=== PATIENT | male | born 1980 | race Caucasian/White ===

== ENCOUNTER 2020-03-19 23:49 | Emergency (ER) | payer SELFPAY ==
[2020-03-20] MEDS ORDERED: RINGERS SOLUTION,LACTATED 1,000 ML IV ONE (00:29)
--- NOTE | 2020-03-20 00:31 | ER Document Report ---
ED Medical Screen (RME) - General Stated Complaint: ETOH Time Seen by Provider: 03/20/20 00:28 Mode of Arrival: Wheelchair Information source: Patient Notes: HPI; 39-year-old male past medical history significant for chronic alcohol use and anxiety presents to the emergency room for medical clearance from [place]. Patient states he was just discharged 2 days ago from [facility] for anxiety and immediately started drinking again. Patient states he does not want to drink anymore he wants help with his drinking. Denies any suicidal homicidal ideation. Unknown amount of alcohol today. PE: Alert and oriented x3. Lungs: Clear to auscultation without rales, rhonchi, wheezes. Heart is tachycardic without murmurs, rubs, gallops. Patient is a poor historian. I have greeted and performed a rapid initial assessment of this patient. A comprehensive ED assessment and evaluation of the patient, analysis of test results and completion of the medical decision making process will be conducted by additional ED providers. I have specifically instructed the patient or family members with the patient to immediately return to any nursing staff should anything change in the patient's condition or with their chief complaint. TRAVEL OUTSIDE OF THE [place] IN LAST 30 DAYS: No Physical Exam - Vital signs Vitals: Temp Pulse BP Pulse Ox 98.1 F 140 H 118/68 99 03/20/20 00:04 03/20/20 00:04 03/20/20 00:04 03/20/20 00:04 Course - Vital Signs Vital signs: Temp Pulse Resp BP Pulse Ox 98.1 F 140 H 118/68 99 03/20/20 00:04 03/20/20 00:04 03/20/20 00:04 03/20/20 00:04
[2020-03-20 01:16] LABS: ABSOLUTE BASOPHILS # (AUTO) 0.1 10^3/uL (0.0-0.2); ABSOLUTE EOSINOPHILS # (AUTO) 0.1 10^3/uL (0.0-0.6); ABSOLUTE LYMPHOCYTES (AUTO) 2.8 10^3/uL (0.5-4.7); ABSOLUTE MONOCYTES (AUTO) 0.4 10^3/uL (0.1-1.4); ABSOLUTE NEUT (AUTO) 2.8 10^3/uL (1.7-8.2); BASOPHILS % (AUTO) 0.8 % (0-2); EOSINOPHILS % (AUTO) 1.1 % (0-6); HEMATOCRIT 45.8 % (37.9-51.0); HEMOGLOBIN 16.2 g/dL (13.5-17.0); LYMPHOCYTES % (AUTO) 45.5 % (13-45); MEAN CORPUSCULAR HEMOGLOBIN 33.1 pg (27.0-33.4); MEAN CORPUSCULAR HGB CONC 35.4 g/dL (32.0-36.0); MEAN CORPUSCULAR VOLUME 93 fl (80-97); MONOCYTES % (AUTO) 6.9 % (3-13); PLATELET COUNT 296 10^3/uL (150-450); RED CELL DISTRIBUTION WIDTH 15.2 % (11.5-14.0); SEGMENTED NEUTROPHILS % (AUTO) 45.7 % (42-78); TOTAL CELLS COUNTED % (AUTO) 100 %; WHITE BLOOD COUNT 6.2 10^3/uL (4.0-10.5)
[2020-03-20 01:37] LABS: ALBUMIN 4.9 g/dL (3.5-5.0); ALKALINE PHOSPHATASE 86 U/L (38-126); ANION GAP 14 (5-19); ASPARTATE AMINO TRANSFERASE 30 U/L (17-59); BILIRUBIN,DIRECT 0.2 mg/dL (0.0-0.4); BILIRUBIN,TOTAL 0.4 mg/dL (0.2-1.3); BLOOD UREA NITROGEN 8 mg/dL (7-20); CALCIUM 9.3 mg/dL (8.4-10.2); CARBON DIOXIDE 28 mmol/L (22-30); CHLORIDE 106 mmol/L (98-107); GLUCOSE 112 mg/dL (75-110); POTASSIUM 4.4 mmol/L (3.6-5.0); TOTAL PROTEIN 8.2 g/dL (6.3-8.2)
[2020-03-20 01:39] LABS: ACETAMINOPHEN < 10 ug/mL (10-30); SALICYLATE < 1.0 mg/dL (2.0-20.0)
[2020-03-20 01:52] LABS: ALCOHOL 389 mg/dL (NONE DETECTED)
[2020-03-20 03:17] LABS: APPEARANCE,URINE SLIGHTLY-CLOUDY; BILIRUBIN,URINE NEGATIVE (NEGATIVE); COLOR,URINE YELLOW; GLUCOSE, URINE NEGATIVE (NEGATIVE); KETONES,URINE NEGATIVE (NEGATIVE); LEUKOCYTE ESTERASE,URINE NEGATIVE (NEGATIVE); NITRITE,URINE NEGATIVE (NEGATIVE); PROTEIN,URINE NEGATIVE (NEGATIVE); URINE SPECIFIC GRAVITY 1.009; UROBILINOGEN,URINE NEGATIVE mg/dL (<2.0)
[2020-03-20 03:34] LABS: URINE AMPHETAMINES SCREEN NEGATIVE; URINE BARBITURATES SCREEN NEGATIVE; URINE COCAINE SCREEN NEGATIVE; URINE MARIJUANA (THC) SCREEN NEGATIVE; URINE METHADONE SCREEN NEGATIVE; URINE PHENCYCLIDINE SCREEN NEGATIVE
[2020-03-20 03:35] LABS: URINE BENZODIAZEPINES SCREEN UNCONFIRMED POSITIVE
--- NOTE | 2020-03-20 05:30 | ER Document Report ---
ED General - General Chief Complaint: ETOH Abuse Stated Complaint: ETOH Time Seen by Provider: 03/20/20 00:28 Mode of Arrival: Wheelchair TRAVEL OUTSIDE OF THE [place] IN LAST 30 DAYS: No - HPI Context: This is a 39-year-old male with a past medical history of chronic alcoholism and anxiety presenting to the emergency room requesting medical clearance so he can go over to [facility] for alcohol detox. Patient states that he went over to [place] earlier this evening and apparently his alcohol level was too high for them to take him in and they directed him to the ED for medical clearance. Patient states he was just discharged from [facility] a couple of days ago for anxiety and immediately started drinking again to control his anxiety. Patient states he definitely does want to stop drinking and he denies any type of suicidal or homicidal ideation. Patient states he has been drinking but does not recall how much he has had to drink. Patient denies fever, chills, chest pain, shortness of breath, loss of sense of taste, loss of sense of smell, prior Covid 19 infection, known exposure to persons positive for COVID-19 or persons under investigation for COVID-19. Patient denies pain but states that his alcohol abuse is severe and nothing seems to help with this problem and he noticed that the more he drinks the worsening makes the problem for himself. Patient denies nausea, vomiting. Associated symptoms: Other - See HPI Exacerbated by: Other - See HPI Relieved by: Other - See HPI Similar symptoms previously: Yes - Related Data Allergies/Adverse Reactions: No Known Allergies Allergy (Verified 03/20/20 00:33) Past Medical History - General Information source: Patient - Social History Smoking Status: Current Every Day Smoker Frequency of alcohol use: Heavy Drug Abuse: None Family History: Reviewed & Not Pertinent Psychiatric Medical History: Reports: Hx Anxiety, Other - Alcoholism Review of Systems - Review of Systems Constitutional: No symptoms reported EENT: No symptoms reported Cardiovascular: No symptoms reported Respiratory: No symptoms reported Gastrointestinal: No symptoms reported Genitourinary: No symptoms reported Male Genitourinary: No symptoms reported Musculoskeletal: No symptoms reported Skin: No symptoms reported Hematologic/Lymphatic: No symptoms reported Neurological/Psychological: Anxiety, Other - Alcohol abuse -: Yes All other systems reviewed and negative Physical Exam - Vital signs Vitals: Temp Pulse BP Pulse Ox 98.1 F 140 H 118/68 99 03/20/20 00:04 03/20/20 00:04 03/20/20 00:04 03/20/20 00:04 - Notes Notes: CONSTITUTIONAL [Vital signs reviewed, patient is sleeping but is easily awoken in response to voice. Patient is alert and oriented x3 at this time. Patient has a nontoxic appearance. HEAD [Atraumatic, Normocephalic.] EYES [Eyes are normal to inspection, No discharge from eyes, Extraocular muscles intact, Sclera are normal, Conjunctiva are normal.] ENT [External ears normal to inspection, Nose examination normal, Mouth normal to inspection.] NECK [Normal ROM, No jugular venous distention, No meningeal signs, ] RESPIRATORY CHEST [Chest is nontender, Breath sounds normal, No respiratory distress.] CARDIOVASCULAR [RRR, No murmurs, Normal S1 S2, No rub, No gallop.] ABDOMEN [Abdomen is nontender, No pulsatile masses, No other masses, Bowel sounds normal, No distension, No peritoneal signs, No hernias.] BACK [There is no CVA Tenderness, There is no tenderness to palpation, Normal inspection.] UPPER EXTREMITY [Inspection normal, No cyanosis, No clubbing, No edema, LOWER EXTREMITY [Inspection normal, No cyanosis, No clubbing, No edema, No calf tenderness, NEURO [No focal motor deficits, No focal sensory deficits, Speech normal.] SKIN [Skin is warm, Skin is dry, Skin is normal color.] PSYCHIATRIC [Depressed affect. ] Course - Re-evaluation Re-evalutation: 03/20/20 05:30 Results of ED MSE to this point discussed with patient. Patient was informed that his alcohol level would need to be below 200 before dextroverted accept him. - Vital Signs Vital signs: Temp Pulse Resp BP Pulse Ox 98.1 F 140 H 20 111/79 99 03/20/20 00:04 03/20/20 00:04 03/20/20 03:01 03/20/20 03:00 03/20/20 00:04 - Laboratory Result Diagrams: 03/20/20 01:00 03/20/20 01:00 Laboratory results interpreted by me: 03/20/20 03/20/20 01:00 01:00 RDW 15.2 H Lymph % (Auto) 45.5 H Sodium 147.6 H Glucose 112 H Salicylates < 1.0 L Acetaminophen < 10 L Serum Alcohol 389 H* - EKG Interpretation by Me Additional EKG results interpreted by me: 03/20/20 05:30 EKG obtained on 03/20/2020 at 00 18 hours was interpreted by this MD. Findings: Normal sinus rhythm, rate 98, NC interval appears to be within normal limits, P waves preceding QRS complexes, QRS complexes revealed incomplete right bundle branch block and left anterior fascicular block, QTC is 445, there are no obvious patterns of ST segment elevation, depression or reciprocal changes seen to suggest acute myocardial ischemia or infarction. There is no prior EKG available for comparison. Impression: Normal sinus rhythm with incomplete right bundle branch block, left anterior fascicular block and nonspecific ST segments. - Transfer of Care Care transferred to following provider: PROMISE Campbell @ 0600 Discharge - Discharge Clinical Impression: Alcohol use disorder Acute alcohol intoxication Qualifiers: Complication of substance-induced condition: uncomplicated Qualified Code(s): F10.920 - Alcohol use, unspecified with intoxication, uncomplicated Condition: Stable Disposition: OTHER
[2020-03-20] MEDS: NORMAL SALINE 1000 ML 1,000 ML IV PRN ×2 (05:42→07:10)
[2020-03-20] MEDS ORDERED: NORMAL SALINE 1000 ML 1,000 ML IV PRN (11:56)
[2020-03-20] MEDS ORDERED: ONDANSETRON HCL INJ/PF 4 MG/2 ML SDV IV ONE (13:17)
[2020-03-20] MEDS ORDERED: LORAZEPAM INJ 2 MG/1 ML VIAL IV ONE (14:21)
[2020-03-20 14:39] VITALS: BP 104/65
--- NOTE | 2020-03-20 18:59 | EKG REPORT ---
SEVERITY:- ABNORMAL ECG - SINUS RHYTHM PROBABLE LEFT ATRIAL ABNORMALITY INCOMPLETE RBBB AND LAFB : Confirmed by: Nette Ignacio MD 20-Mar-2020 18:58:52
== END 2020-03-20 14:54 ==
LOC: ER 23:49
DX: F10.920 Alcohol use, unspecified with intoxication, uncomplicated (principal); F41.9 Anxiety disorder, unspecified; F17.200 Nicotine dependence, unspecified, uncomplicated
CPT/HCPCS: 93005; 99285; 96361; 96374; 96375; 36415; 80307 ×4; 85025; 80053; 81001; 93010; J2060; J2405; J7030; J7120

== ENCOUNTER 2020-03-28 16:47 | Emergency (ER) | payer SELFPAY ==
--- NOTE | 2020-03-28 17:01 | ER Document Report ---
ED Medical Screen (RME) - General Chief Complaint: Medical Clearance Stated Complaint: MEDICAL CLEARANCE Time Seen by Provider: 03/28/20 16:58 Mode of Arrival: Ambulatory Information source: Patient Notes: Presents requesting medical clearance for detox to the [facility]. Patient is requesting treatment for alcohol abuse. Patient states he has been drinking about 18 beers a day for many years. Patient's last use was about 3 hours ago. Patient states he is only had 4 beers today. Patient denies any chronic medical problems. Patient has not eaten any food in several days and the [facility] facility would like him to have a meal tray while here as well. I have greeted and performed a rapid initial assessment of this patient. A comprehensive ED assessment and evaluation of the patient, analysis of test results and completion of the medical decision making process will be conducted by additional ED providers. TRAVEL OUTSIDE OF THE [place] IN LAST 30 DAYS: No - Related Data Allergies/Adverse Reactions: No Known Allergies Allergy (Verified 03/20/20 00:33) Past Medical History Psychiatric Medical History: Reports: Hx Anxiety Physical Exam - Vital signs Vitals: Temp Pulse Resp BP Pulse Ox 98.7 F 110 H 16 145/72 H 100 03/28/20 16:52 03/28/20 16:52 03/28/20 16:52 03/28/20 16:52 03/28/20 16:52 - Cardiovascular Rhythm: Tachycardia Heart sounds: S1 appreciated, S2 appreciated Course - Vital Signs Vital signs: Temp Pulse Resp BP Pulse Ox 98.7 F 110 H 16 145/72 H 100 03/28/20 16:52 03/28/20 16:52 03/28/20 16:52 03/28/20 16:52 03/28/20 16:52
[2020-03-28 17:51] LABS: APPEARANCE,URINE CLEAR; BILIRUBIN,URINE NEGATIVE (NEGATIVE); COLOR,URINE COLORLESS; GLUCOSE, URINE NEGATIVE (NEGATIVE); KETONES,URINE NEGATIVE (NEGATIVE); LEUKOCYTE ESTERASE,URINE NEGATIVE (NEGATIVE); NITRITE,URINE NEGATIVE (NEGATIVE); PROTEIN,URINE NEGATIVE (NEGATIVE); URINE SPECIFIC GRAVITY 1.002; UROBILINOGEN,URINE NEGATIVE mg/dL (<2.0)
[2020-03-28 17:53] LABS: ABSOLUTE BASOPHILS # (AUTO) 0.1 10^3/uL (0.0-0.2); ABSOLUTE LYMPHOCYTES (AUTO) 1.8 10^3/uL (0.5-4.7); ABSOLUTE MONOCYTES (AUTO) 0.4 10^3/uL (0.1-1.4); ABSOLUTE NEUT (AUTO) 4.5 10^3/uL (1.7-8.2); EOSINOPHILS % (AUTO) 0.3 % (0-6); HEMATOCRIT 45.3 % (37.9-51.0); HEMOGLOBIN 15.7 g/dL (13.5-17.0); LYMPHOCYTES % (AUTO) 26.3 % (13-45); MEAN CORPUSCULAR HEMOGLOBIN 32.2 pg (27.0-33.4); MEAN CORPUSCULAR HGB CONC 34.7 g/dL (32.0-36.0); MEAN CORPUSCULAR VOLUME 93 fl (80-97); MONOCYTES % (AUTO) 5.9 % (3-13); PLATELET COUNT 243 10^3/uL (150-450); RED BLOOD COUNT 4.87 10^6/uL (4.35-5.55); RED CELL DISTRIBUTION WIDTH 14.9 % (11.5-14.0); SEGMENTED NEUTROPHILS % (AUTO) 66.5 % (42-78); TOTAL CELLS COUNTED % (AUTO) 100 %; WHITE BLOOD COUNT 6.8 10^3/uL (4.0-10.5)
[2020-03-28 18:08] LABS: URINE AMPHETAMINES SCREEN NEGATIVE; URINE BARBITURATES SCREEN NEGATIVE; URINE BENZODIAZEPINES SCREEN NEGATIVE; URINE COCAINE SCREEN NEGATIVE; URINE MARIJUANA (THC) SCREEN NEGATIVE; URINE METHADONE SCREEN NEGATIVE; URINE PHENCYCLIDINE SCREEN NEGATIVE
[2020-03-28 18:10] LABS: ALBUMIN 4.8 g/dL (3.5-5.0); ALKALINE PHOSPHATASE 93 U/L (38-126); ANION GAP 12 (5-19); ASPARTATE AMINO TRANSFERASE 28 U/L (17-59); BILIRUBIN,DIRECT 0.1 mg/dL (0.0-0.4); BILIRUBIN,TOTAL 0.5 mg/dL (0.2-1.3); BLOOD UREA NITROGEN 7 mg/dL (7-20); CALCIUM 9.4 mg/dL (8.4-10.2); CARBON DIOXIDE 31 mmol/L (22-30); CHLORIDE 101 mmol/L (98-107); GLUCOSE 92 mg/dL (75-110); POTASSIUM 4.2 mmol/L (3.6-5.0)
[2020-03-28 18:20] LABS: ALCOHOL 363 mg/dL (NONE DETECTED)
--- NOTE | 2020-03-28 19:41 | ER Document Report ---
ED General - General Mode of Arrival: Ambulatory Information source: Patient TRAVEL OUTSIDE OF THE [place] IN LAST 30 DAYS: No <MAURICIO CONNOR - Last Filed: 03/28/20 19:46> <SOLEDAD JOHNSON IV - Last Filed: 03/29/20 04:16> - General Chief Complaint: ETOH Abuse Stated Complaint: MEDICAL CLEARANCE Time Seen by Provider: 03/28/20 16:58 Primary Care Provider: PAMELA TANG MD [HONORARY] - Follow up as needed Notes: 39-year-old man presents to the emergency department for medical clearance for a rehab stay for alcohol abuse. He denies any active medical problems, he is a smoker approximately a pack and 1/2/day. He admits that he has been abusing alcohol and needs help. Patient states that his last drink was this morning, states that he drinks 2, 24 ounce malt liquors. Apparently he has a bed at [place]. (MAURICIO CONNOR) - Related Data Allergies/Adverse Reactions: No Known Allergies Allergy (Verified 03/20/20 00:33) Past Medical History - General Information source: Patient - Social History Smoking Status: Current Every Day Smoker Frequency of alcohol use: Heavy Drug Abuse: None Family History: Reviewed & Not Pertinent Psychiatric Medical History: Reports: Hx Anxiety <MAURICIO CONNOR - Last Filed: 03/28/20 19:46> Review of Systems <MAURICIO CONNOR - Last Filed: 03/28/20 19:46> - Review of Systems Notes: Constitutional: Negative for fever. HENT: Negative for sore throat. Eyes: Negative for visual changes. Cardiovascular: Negative for chest pain. Respiratory: Negative for shortness of breath. Gastrointestinal: Negative for abdominal pain, vomiting or diarrhea. Genitourinary: Negative for dysuria. Musculoskeletal: Negative for back pain. Skin: Negative for rash. Neurological: Negative for headaches, weakness or numbness. 10 point ROS negative except as marked above and in HPI. (MAURICIO CONNOR) Physical Exam <MAURICIO CONNOR - Last Filed: 03/28/20 19:46> - Vital signs Vitals: Temp Pulse Resp BP Pulse Ox 98.7 F 110 H 16 145/72 H 100 03/28/20 16:52 03/28/20 16:52 03/28/20 16:52 03/28/20 16:52 03/28/20 16:52 - Notes Notes: GENERAL: No acute distress, non-toxic appearance. HEAD: Normal with no signs of head trauma. EYES: PERRLA, EOMI, conjunctiva normal, no discharge. EARS: Hearing grossly intact. NOSE: Normal. THROAT: Oropharynx is normal. NECK: Normal range of motion, no tenderness, supple, no lymphadenopathy, No adenopathy, no JVD. CHEST: Clear breath sounds bilaterally. No wheezes, rales, or rhonchi. CARDIAC: Regular rate and rhythm. S1 and S2, without murmurs, gallops, or rubs. VASCULAR: No Edema. Peripheral pulses normal and equal in all extremities. ABDOMEN: Normal and soft with no tenderness, no masses or pulsatile masses. GASTROINTESTINAL: Bowel sounds normal GENITOURINARY: Normal, No tenderness LYMPATHTIC: No lymphadenopathy noted. MUSCULOSKELETAL: Good range of motion of all major joints. Extremities without clubbing, cyanosis or edema. NEUROLOGICAL: Alert and oriented x 3. No focal sensory or strength deficits. Speech normal. Follows commands appropriately. PSYCHIATRIC: Normal Affect, judgement and mood. SKIN: Normal appearance with no rashes or lesions. (MAURICIO CONNOR) Course - Laboratory Result Diagrams: 03/28/20 17:30 03/28/20 17:30 - EKG Interpretation by Nh Rate: Normal - EKG interpreted by Dr. Connor: Normal sinus rhythm, rate 70, NE interval 188 ms, QT interval 408 ms, left axis deviation, ICRBBB, abnormal R wave progres no acute ST or T wave abnormalities, no ischemic findings, compared to EKG dated 03/20/20,no acute interval changes. interpretation: Abnormal EKG <MAURICIO CONNOR - Last Filed: 03/28/20 19:46> - Laboratory Result Diagrams: 03/28/20 17:30 03/28/20 17:30 <SOLEDAD JOHNSON IV - Last Filed: 03/29/20 04:16> - Re-evaluation Re-evalutation: 03/29/20 02:46 Patient's repeat alcohol level is now 178. This MD asked the charge nurse to contact [place] see if they were ready to receive the patient over there for alcohol detox and rehab. 03/29/20 04:15 Patient's bed at [place] is ready (SOLEDAD JOHNSON IV) - Vital Signs Vital signs: Temp Pulse Resp BP Pulse Ox 98.7 F 110 H 16 145/72 H 100 03/28/20 16:52 03/28/20 16:52 03/28/20 16:52 03/28/20 16:52 03/28/20 16:52 - Laboratory Laboratory results interpreted by me: 03/28/20 03/28/20 17:30 17:30 RDW 14.9 H Carbon Dioxide 31 H Serum Alcohol 363 H* Discharge <MAURICIO CONNOR - Last Filed: 03/28/20 19:46> <SOLEDAD JOHNSON IV - Last Filed: 03/29/20 04:16> - Discharge Clinical Impression: Alcohol abuse Alcohol intoxication Qualifiers: Complication of substance-induced condition: with unspecified complication Qualified Code(s): F10.929 - Alcohol use, unspecified with intoxication, unspeci fied Condition: Good Disposition: OTHER Additional Instructions: Return to the Emergency Department without delay if any worse. HOME CARE INSTRUCTIONS & INFORMATION: Thank you for choosing us for your medical needs. We hope you're satisfied with the care you received. After you leave, you must properly care for your problem and, at the same time, observe its progress. Any condition can change. Some illnesses can change rapidly over hours or days. If your condition worsens, return to the Emergency Department or see your physician promptly. ABOUT YOUR X-RAYS AND EKG'S: If you had an EKG or X-rays taken, they have been read by the Emergency Physician. The X-rays and EKG's will also be read by a Radiologist or Marine Fireman within 24 hours. If discrepancies are noted, you will be notified by telephone. Please be certain the ED has a correct telephone number & address where you can be reached. Also, realize that some fractures or abnormalities do not show up on initial X-rays. If your symptoms continue, see your physician. ABOUT YOUR LABORATORY TEST: If you had laboratory tests, the results have been reviewed by the Emergency Physician. Some test results (for example cultures) may not be available for several days. You will be contacted if any test result shows you need additional treatment. Please be certain the ED has a correct telephone number and address where you can be reached. ABOUT YOUR MEDICATIONS: You will receive instructions on how to take your medicine on the prescription label you receive. Additional information may be provided by the Pharmacy. If you have questions afterwards, call the ED for clarification or further instructions. Some prescribed medications may cause drowsiness. Do not perform tasks such as driving a car or operating machinery without consulting your Pharmacist. If you feel you need a refill of pain medication, your condition will need re-evaluation. Please do not call for a refill of any medication. ABOUT YOUR SIGNATURE: Signature of this document acknowledges to followin. Understanding that you received emergency treatment and that you may be released before al medical problems are known or treated. Please be certain the ED has a correct phone number & address where you can be reached. 2. Acknowledgement that you will arrange for follow-up care as recommended. 3. Authorization for the Emergency Physician to provide information to your follow-up Physician in order to maximize your care. AT ANY TIME, IF YOUR SYMPTOMS CHANGE SIGNIFICANTLY OR WORSEN OR YOU DEVELOP NEW SYMPTOMS, RETURN TO THE EMERGENCY DEPARTMENT IMMEDIATELY FOR RE-EVALUATION. OUR GOAL IS TO PROVIDE EXCELLENT MEDICAL CARE! WE HOPE THAT WE HAVE MET YOUR EXPECTATIONS DURING YOUR EMERGENCY DEPARTMENT VISIT AND THAT YOU FEEL YOU HAVE RECEIVED EXCELLENT CARE! Acute Alcohol Intoxication Your evaluation revealed very high levels of alcohol. You can from drinking a large amount of alcohol rapidly! Further, there's the risk of falls, traffic accidents, and fights. A high portion (about 50 percent) of the serious injuries seen in hospital emergency rooms are caused by alcohol. Alcohol overdosage is usually due to an underlying emotional or psychiatric problem. You may benefit from counselling. If "binge" drinking is an ongoing problem for you, or if you drink ANY AMOUNT of alcohol EVERY day, you most likely have a tendency to alcoholism. You should avoid alcohol totally. We can refer you for treatment. Persons with alcohol problems are often also prone to other addictions -- you should discuss any use of medications or drugs with the doctor. You should be watched at home for the next several hours by someone who has not been drinking. Get extra fluids for the next 24 hours. Call the doctor if there is repeated vomiting, increasing headache, decreasing level of alertness, or any other worsening. Referrals: PAMELA TANG MD [HONORARY] - Follow up as needed
--- NOTE | 2020-03-28 19:49 | EKG REPORT ---
SEVERITY:- ABNORMAL ECG - SINUS RHYTHM INCOMPLETE RIGHT BUNDLE BRANCH BLOCK ABNRM R PROG, CONSIDER ASMI OR LEAD PLACEMENT : Confirmed by: Ortega Zacarias MD 28-Mar-2020 19:47:50
[2020-03-28] MEDS ORDERED: ONDANSETRON 4 MG TAB.RAPDIS PO ONE (21:31)
[2020-03-28] MEDS ORDERED: LORAZEPAM 1 MG TABLET PO ONE (22:25)
[2020-03-29 04:35] VITALS: BP 131/80
== END 2020-03-29 04:30 | disposition other institution (70) ==
LOC: ER 16:47
DX: F10.929 Alcohol use, unspecified with intoxication, unspecified (principal); F17.210 Nicotine dependence, cigarettes, uncomplicated
CPT/HCPCS: 93005; 99284; 36415; 80307 ×2; 85025; 80053; 81001; 93010; S0119